=== PATIENT | male | born 1935 | race Caucasian/White ===

== ENCOUNTER 2024-05-30 11:34 | Inpatient (IN) | payer MEDICARE ==
[2024-05-30] MEDS ORDERED: Sennosides/Docusate Sodium 50-8.6 MG Tab PO PRN (15:43)
[2024-05-30] MEDS ORDERED: Warfarin Sliding Scale PO SCH (15:45)
[2024-05-30] MEDS ORDERED: Nystatin Topical Powder 15 GM Bottle TOP PRN (15:47)
[2024-05-30] MEDS: Carvedilol 6.25 MG Tab PO SCH (18:02)
[2024-05-30] MEDS: Triamcinolone Acetonide 0.1% Crm 80 GM Tube TOP SCH (20:58)
[2024-05-31 06:36] LABS: INR 3.26 (1.00-1.24); PROTHROMBIN TIME 30.8 sec (9.0-11.1)
[2024-05-31] MEDS: Fish Oil/Omega-3 Fatty Acids 1 Gm Cap PO SCH (08:52)
[2024-05-31] MEDS: Cholecalciferol (Vitamin D3) 25 MCG Tab PO SCH (08:52)
[2024-05-31] MEDS ORDERED: GINGER ROOT 550 MG PO SCH (09:00)
[2024-05-31] MEDS: Furosemide 40 MG Tab PO SCH (09:10)
[2024-06-01] MEDS: Acetaminophen 325 MG Tab PO PRN (03:20)
[2024-06-01 06:30] LABS: INR 2.63 (1.00-1.24); PROTHROMBIN TIME 25.3 sec (9.0-11.1)
[2024-06-01] MEDS: Warfarin 2.5 MG Tab PO ONE (16:59)
[2024-06-02 07:06] LABS: INR 2.06 (1.00-1.24); PROTHROMBIN TIME 20.2 sec (9.0-11.1)
[2024-06-02] MEDS: Warfarin 2 MG Tab PO ONE (18:04)
[2024-06-02] MEDS: Warfarin** 1 MG TABLET PO ONE (18:30)
[2024-06-03 06:47] LABS: INR 2.55 (1.00-1.24); PROTHROMBIN TIME 24.5 sec (9.0-11.1)
[2024-06-03] MEDS: Warfarin 2.5 MG Tab PO ONE (16:46)
[2024-06-04 06:51] LABS: INR 2.07 (1.00-1.24); PROTHROMBIN TIME 20.3 sec (9.0-11.1)
[2024-06-04] MEDS: Warfarin 2.5 MG Tab PO ONE (16:56)
[2024-06-05 06:47] LABS: INR 2.27 (1.00-1.24)
[2024-06-05] MEDS ORDERED: Warfarin 2.5 MG Tab PO ONE (16:00)
== END 2024-06-05 13:45 | disposition home or self-care (01) | DRG 947 ==
LOC: FB.MS 15:40
PROVIDERS: ADMIT Family Medicine; ATTEND Internal Medicine
DX: R53.1 Weakness (principal); U07.1 COVID-19; I50.42 Chronic combined systolic (congestive) and diastolic (congestive) heart failure; N18.4 Chronic kidney disease, stage 4 (severe); I13.0 Hypertensive heart and chronic kidney disease with heart failure and stage 1 through stage 4 chronic kidney disease, or unspecified chronic kidney disease; C83.30 Diffuse large B-cell lymphoma, unspecified site; I48.19 Other persistent atrial fibrillation; I25.10 Atherosclerotic heart disease of native coronary artery without angina pectoris; R55 Syncope and collapse; E78.2 Mixed hyperlipidemia; Z79.01 Long term (current) use of anticoagulants; Z79.899 Other long term (current) drug therapy
CPT/HCPCS: 36415; 85610; 97116-GP; 97161-GP; 97165-GO; 97530-GO; 97530-GP; 97535-GO; 99305; 99315; A9270-GY